=== PATIENT | male | born 1960 | race African-American/Black ===

== ENCOUNTER 2019-09-19 13:01 | Observation (INO) ==
[2019-09-19] MEDS ORDERED: NS 1000 ML 1,000 ML IV ONE (13:18)
[2019-09-19] MEDS ORDERED: ZOFRAN INJ 4 MG VIAL IVP ONE (13:18)
[2019-09-19] MEDS ORDERED: NS 1000 ML 1,000 ML ONE (13:40)
[2019-09-19] MEDS ORDERED: ZOFRAN INJ 4 MG VIAL ONE (13:40)
--- NOTE | 2019-09-19 13:51 | DR.N/VMALE ---
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 Multiple episodes NB/ NB emesis along w/ multiple episodes of diarrhea w/o noted blood or mucous. No abd pain. No f/c,. No CP or sob. Complaints Chief Complaint:: patient stated he called 911 due to him vomiting, nausea, and diarrhea since this morning. said it makes his abd burn Source History Provided: Patient and Family Member Mode of Arrival Mode of Arrival: EMS Timing Onset of Chief Complaint: 09/19/19 Context Onset: Spontaneous Recent: denies Travel and Contact Exposure Possible Ingestion: ETOH History of: Abdominal Operation and Diabetes Associated Signs and Symptoms Symptoms: Diarrhea; denies Abdominal Pain PMH PMH Past Medical History: Yes Past Medical History: Depression, Diabetes and Dyslipidemia Past Medical History Comment: alcoholism Past Surgical History: Yes Surgical History: Abdominal Surgery Family History History of Family Medical Conditions: No Social History Does patient currently use any type of tobacco product: No Have you used tobacco products in the last 12 months: No Type of Tobacco Use: None Does any household member use tobacco: No Alcohol Use: None and DAILY Do you use any recreational Drugs:: No Lives With: Family Lives Where: Home infectious screening In the last 2 months have you had wt loss of >10#?: NO Have you had fever, night sweats or hemotysis?: No Have you traveled outside the country in the last 6 months?: No Isolation: Standard ROS Review of Systems Constitutional: negative Chills and Fever Eyes: No Symptoms Reported ENTM: No Symptoms Reported Respiratoy: No Symptoms Reported Cardiovascular: No Symptoms Reported; negative Chest Pain Gastrointestinal/Abdominal: Diarrhea, Nausea and Vomiting; negative Abdominal Pain Genitourinary: No Symptoms Reported Neurological: No Symptoms Reported Musculoskeletal: No Symptoms Reported Integumentary: No Symptoms Reported Hematologic/Lymphatic: No Symptoms Reported Endocrine: No Symptoms Reported Psychiatric: No Symptoms Reported All Other Systems: Reviewed and Negative PE Vital Signs Vitals: Temperature 97.7 F Pulse Rate 105 Respiratory Rate 16 Blood Pressure 145/88 O2 Sat by Pulse Oximetry 98 General Limitations: No Limitations General Appearance: Alert and In No Apparent Distress Head Head Exam: Normal Inspection Eyes Eye exam: Normal Appearance ENT ENT Exam: Normal Oropharynx, Normal External Ear Exam and Mucous Membranes Dry Neck Neck Exam: Normal Inspection Chest Chest Inspection: Normal Inspection Respiratory Respiratory Exam: Normal Lung Sounds Bilat Respiratory Exam: Bilateral: Clear to Auscultation Cardiovascular Cardiovascular Exam: Regular Rate and Normal Rhythm Abdominal Exam Abdominal Exam: Normal Bowel Sounds, Soft and Other (well healed surgical incision, + HSM ); negative Tenderness, Guarding, Rigidity and Dimnished Bowel Sounds Rectal Rectal Exam: Deferred Exam: Male: Deferred Extremities Extremities Exam: Normal Inspection Back Back Exam: Normal Inspection Neurologic Neurological Exam: Alert and Oriented X3 Psychiatric Psychiatric Exam: Normal Affect and Normal Mood Skin Skin Exam: Warm, Dry, Intact and Normal Color COURSE Treatment Treatment: 58 yo aam w/ prev hx of alcoholism and type 2 dm presented w/ n/v x 24 hrs. No hematemesis. Labs unremarkable with exception of lactic acid greater than 4. Given IVF's and Zofran. BAL undetectable. Unable to ambulate and stumbling in umaña but neurologically intact otherwise on exam. Head CT neg-. Will initiate thiamine. Will obtain thiamine/ b12. Hang a bananas bag. Continue ivf's. Will admit. d/w Dr Oliva whom agrees to admit. Abdominal exam benign. No obvious source of infection. Afebrile. WBC wnl. ROR Labs Reviewed Result Diagrams: 09/19/19 13:40 09/19/19 13:40 Laboratory: WBC 10.0 X10^3/uL (3.6-10.0) 09/19/19 13:40 RBC 5.36 X10^6/uL (4.7-6.0) 09/19/19 13:40 Hgb 17.0 g/dL (13.5-18.0) 09/19/19 13:40 Hct 50.0 % (42.0-54.0) 09/19/19 13:40 MCV 93.2 fL (80.0-100.0) 09/19/19 13:40 MCH 31.8 pg (27.0-34.0) 09/19/19 13:40 MCHC 34.1 g/dL (33.0-35.0) 09/19/19 13:40 RDW 13.7 % (11.6-16.5) 09/19/19 13:40 Plt Count 133 X10^3/uL (150.0-450.0) L 09/19/19 13:40 MPV 10.5 fL (7.4-11.0) 09/19/19 13:40 Neut % (Auto) 76.4 % (42.0-75.0) H 09/19/19 13:40 Lymph % (Auto) 15.6 % (21.0-51.0) L 09/19/19 13:40 [place] % (Auto) 6.8 % (0.0-13.0) 09/19/19 13:40 Eos % (Auto) 0.7 % (0.9-2.9) L 09/19/19 13:40 Baso % (Auto) 0.5 % (0.2-1.0) 09/19/19 13:40 Neut # (Auto) 7.7 x10^3/uL (2.2-4.8) H 09/19/19 13:40 Lymph # (Auto) 1.6 X10^3/uL (1.3-2.9) 09/19/19 13:40 [place] # (Auto) 0.7 x10^3/uL (0.3-0.8) 09/19/19 13:40 Eos # (Auto) 0.1 x10^3/uL (0.0-0.2) 09/19/19 13:40 Baso # (Auto) 0.0 X10^3/uL (0.0-0.1) 09/19/19 13:40 Absolute Nucleated RBC 0.0 /100WBC 09/19/19 13:40 Sodium 140 mmol/L (136-145) 09/19/19 13:40 Corrected Sodium 144 mmol/L (136-145) 09/19/19 13:40 Potassium 4.1 mmol/L (3.5-5.1) 09/19/19 13:40 Chloride 99 mmol/L (98-107) 09/19/19 13:40 Carbon Dioxide 27.6 mmol/L (21-32) 09/19/19 13:40 BUN 21 mg/dL (7-18) H 09/19/19 13:40 Creatinine 1.03 mg/dL (0.70-1.30) 09/19/19 13:40 Est GFR (MDRD) Af Amer > 60 (>60) 09/19/19 13:40 Est GFR (MDRD) Non-Af > 60 (>60) 09/19/19 13:40 Glucose 250 mg/dL (65-99) H 09/19/19 13:40 Lactic Acid 4.2 mmol/L (0.4-2.0) H 09/19/19 14:15 Calcium 9.7 mg/dL (8.5-10.1) 09/19/19 13:40 Total Bilirubin 0.60 mg/dL (0.2-1.0) 09/19/19 13:40 Direct Bilirubin 0.20 mg/dL (0-0.2) 09/19/19 13:40 Indirect Bilirubin 0.40 mg/dL (0.2-0.8) 09/19/19 13:40 AST 21 Units/L (15-37) 09/19/19 13:40 ALT 31 Units/L (12-78) 09/19/19 13:40 Alkaline Phosphatase 97 Units/L (46-116) 09/19/19 13:40 Ammonia < 10 umol/L (11-32) L 09/19/19 14:15 Troponin I < 0.02 ng/mL (0-1.5) 09/19/19 13:40 Total Protein 8.1 g/dL (6.4-8.2) 09/19/19 13:40 Albumin 4.2 g/dL (3.4-5.0) 09/19/19 13:40 Globulin 3.9 g/dL (2.5-4.5) 09/19/19 13:40 Albumin/Globulin Ratio 1.1 Ratio (1.1-2.1) 09/19/19 13:40 Lipase 208 Units/L (73-393) 09/19/19 13:40 Specimen Type Clean catch urine 09/19/19 14:02 Urine Color Pale yellow (YELLOW) 09/19/19 14:02 Urine Appearance Clear (CLEAR) 09/19/19 14:02 Urine pH 5.0 (5.0 - 8.0) 09/19/19 14:02 Ur Specific [place] 1.015 (1.000-1.030) 09/19/19 14:02 Urine Protein 2+ (NEGATIVE) 09/19/19 14:02 Urine Glucose (UA) 4+ (NEGATIVE) 09/19/19 14:02 Urine Ketones 2+ (NEGATIVE) 09/19/19 14:02 Urine Occult Blood Negative (NEGATIVE) 09/19/19 14:02 Urine Nitrite Negative (NEGATIVE) 09/19/19 14:02 Urine Bilirubin Negative (NEGATIVE) 09/19/19 14:02 Urine Urobilinogen Normal (NORMAL) 09/19/19 14:02 Ur Leukocyte Esterase Negative (NEGATIVE) 09/19/19 14:02 Urine RBC None seen /HPF (0-3) 09/19/19 14:02 Urine WBC None seen /HPF (0-5) 09/19/19 14:02 Ur Squamous Epith Cells Rare /HPF (NEGATIVE) 09/19/19 14:02 Urine Bacteria Negative /HPF (NEGATIVE) 09/19/19 14:02 Ur Culture Indicated? No/not indicated 09/19/19 14:02 Urine Opiates Screen Negative (NEG=<300) 09/19/19 14:02 Urine Methadone Screen Negative (NEG=<300) 09/19/19 14:02 Ur Barbiturates Screen Negative (NEG=<200) 09/19/19 14:02 Ur Phencyclidine Scrn Negative (NEG=<25) 09/19/19 14:02 Ur Amphetamines Screen Negative (NEG=<1000) 09/19/19 14:02 U Benzodiazepines Scrn Negative (NEG=<200) 09/19/19 14:02 Urine Cocaine Screen Negative (NEG=<300) 09/19/19 14:02 U Marijuana (THC) Screen Negative (NEG=<50) 09/19/19 14:02 Ethyl Alcohol mg/dL < 3 mg/dL (0-19.9) 09/19/19 13:40 EKG Rate: 106 [place]: Normal Rhythm: ST Block: None Hypertrophy: None ST: Normal Opioid Opioid Risk Tool Total: 0 Total Score Risk Category: Low Risk Copyright: Zackary COLLINS predicting aberrant behaviors Diagnosis Discharge Problem: Alcohol abuse, Acute dehydration, Abnormal gait, Acidosis, lactic
[2019-09-19 14:00] LABS: MEAN CORPUSCULAR HEMOGLOBIN 31.8 pg (27.0-34.0); MEAN CORPUSCULAR VOLUME 93.2 fL (80.0-100.0); RED BLOOD COUNT 5.36 X10^6/uL (4.7-6.0)
[2019-09-19 14:01] LABS: BASOPHILS % (AUTO) 0.5 % (0.2-1.0); EOSINOPHILS # (AUTO) 0.1 x10^3/uL (0.0-0.2); EOSINOPHILS % (AUTO) 0.7 % (0.9-2.9); LYMPHOCYTES # (AUTO) 1.6 X10^3/uL (1.3-2.9); LYMPHOCYTES % (AUTO) 15.6 % (21.0-51.0); MEAN CORPUSCULAR HGB CONC 34.1 g/dL (33.0-35.0); MEAN PLATELET VOLUME 10.5 fL (7.4-11.0); MONOCYTES # (AUTO) 0.7 x10^3/uL (0.3-0.8); MONOCYTES % (AUTO) 6.8 % (0.0-13.0); NEUTROPHILS # (AUTO) 7.7 x10^3/uL (2.2-4.8); NEUTROPHILS % (AUTO) 76.4 % (42.0-75.0); PLATELET COUNT 133 X10^3/uL (150.0-450.0); RED CELL DISTRIBUTION WIDTH 13.7 % (11.6-16.5)
[2019-09-19 14:09] LABS: ALANINE AMINOTRANSFERASE 31 Units/L (12-78); ALBUMIN 4.2 g/dL (3.4-5.0); ALKALINE PHOSPHATASE 97 Units/L (46-116); ASPARTATE AMINO TRANSFERASE 21 Units/L (15-37); BLOOD ALCOHOL < 3 mg/dL (0-19.9); TOTAL PROTEIN 8.1 g/dL (6.4-8.2)
[2019-09-19 14:10] LABS: BILIRUBIN,URINE NEGATIVE (NEGATIVE); BLOOD/HEMOGLOBIN,URINE NEGATIVE (NEGATIVE); GLUCOSE, URINE 4+ (NEGATIVE); KETONES,URINE 2+ (NEGATIVE); LEUKOCYTE ESTERASE ,URINE NEGATIVE (NEGATIVE); NITRITES,URINE NEGATIVE (NEGATIVE); PROTEIN,URINE 2+ (NEGATIVE); UROBILINOGEN,URINE NORMAL (NORMAL)
[2019-09-19 14:17] LABS: BLOOD UREA NITROGEN 21 mg/dL (7-18); CALCIUM 9.7 mg/dL (8.5-10.1); CARBON DIOXIDE 27.6 mmol/L (21-32); CHLORIDE 99 mmol/L (98-107); COR NA(FOR HYPERGLY) 144 mmol/L (136-145); CREATININE 1.03 mg/dL (0.70-1.30); SODIUM 140 mmol/L (136-145); TROPONIN I < 0.02 ng/mL (0-1.5); eGFR NON BLACK RACES > 60 (>60)
[2019-09-19 14:19] LABS: APPEARANCE,URINE CLEAR (CLEAR); BACTERIA,URINE NEGATIVE /HPF (NEGATIVE); COLOR,URINE PALE YELLOW (YELLOW); RBC,URINE NONE SEEN /HPF (0-3); SQUAMOUS EPITHELIAL CELL,UR RARE /HPF (NEGATIVE)
[2019-09-19 14:34] LABS: AMMONIA < 10 umol/L (11-32)
[2019-09-19 14:40] LABS: LACTIC ACID 4.2 mmol/L (0.4-2.0)
[2019-09-19] MEDS ORDERED: ATIVAN TAB 1 MG PO ONE (14:45)
[2019-09-19] MEDS: NS 1000 ML 1,000 ML IV SCH (14:52)
[2019-09-19] MEDS ORDERED: ATIVAN TAB 1 MG ONE (14:55)
[2019-09-19] MEDS ORDERED: NS 500 ML IV 500 ML IV ONE (15:53)
--- NOTE | 2019-09-19 17:41 | CT ---
STUDY: CT HEAD WITHOUT CONTRAST HISTORY: Vomiting, nausea, and diarrhea since this morning.. COMPARISON: None. TECHNIQUE: Multiple axial images of the head were obtained from the skull base to the vertex without administration of IV contrast. Automated exposure control (AEC) was utilized to adjust the MA and/or kV. Findings: The sulci, cisterns and ventricles are age appropriate. There are scattered foci of low attenuation in the periventricular and subcortical white matter of both hemispheres. This is a nonspecific finding which likely represents microangiopathic change in a patient of this age. There is no evidence of acute territorial infarction, hemorrhage, mass, mass effect or midline shift. There are no abnormal extra-axial fluid collections. There is no evidence of acute osseous abnormality or significant soft tissue swelling. IMPRESSION: 1. No evidence of acute intracranial abnormality. 2. Nonspecific white matter change and volume loss as described. 3. If there is strong clinical concern for acute intracranial abnormality, then an MRI examination of the brain could be performed for further evaluation. However, if there are no deficits on neurologic exam, there are no abnormalities identified on this study which require immediate imaging follow-up on an emergent basis. Follow-up MRI could be considered on an outpatient basis as clinically warranted. Reported By:
[2019-09-19] MEDS ORDERED: NS 1000 ML 1,000 ML with MAGNESIUM SULFATE 50% INJ VIAL 1 G, MVI INJ (ADULT) 10 ML IV SCH ×3 (17:42)
[2019-09-19] MEDS ORDERED: MAGNESIUM SULFATE 50% INJ VIAL ONE (17:45)
[2019-09-19] MEDS ORDERED: MVI INJ (ADULT) IV ONE (17:49)
--- NOTE | 2019-09-19 18:26 | RAD ---
Examination: AP chest History: Nausea vomiting diarrhea Findings: Normal heart size with clear lungs and pleural spaces. Impression: Normal AP chest. Reported By:
[2019-09-19 20:09] VITALS: BMI 24.5
[2019-09-19] MEDS: THIAMINE HCL INJ IM SCH (20:13)
[2019-09-19] MEDS: MAALOX or MYLANTA PO PRN (21:57)
[2019-09-20] MEDS: NS 1000 ML 1,000 ML IV SCH ×5 (00:14→19:38)
[2019-09-20] MEDS ORDERED: TYLENOL 325 MG TAB PO ONE (01:31)
[2019-09-20] MEDS: TYLENOL 325 MG TAB PO PRN (01:35)
[2019-09-20 05:17] LABS: BASOPHILS % (AUTO) 0.4 % (0.2-1.0); EOSINOPHILS % (AUTO) 0.5 % (0.9-2.9); HEMATOCRIT 44.1 % (42.0-54.0); HEMOGLOBIN 15.2 g/dL (13.5-18.0); LYMPHOCYTES # (AUTO) 2.2 X10^3/uL (1.3-2.9); LYMPHOCYTES % (AUTO) 27.8 % (21.0-51.0); MEAN CORPUSCULAR HEMOGLOBIN 31.5 pg (27.0-34.0); MEAN CORPUSCULAR HGB CONC 34.3 g/dL (33.0-35.0); MEAN CORPUSCULAR VOLUME 91.8 fL (80.0-100.0); MEAN PLATELET VOLUME 9.4 fL (7.4-11.0); MONOCYTES # (AUTO) 0.9 x10^3/uL (0.3-0.8); MONOCYTES % (AUTO) 11.2 % (0.0-13.0); NEUTROPHILS # (AUTO) 4.7 x10^3/uL (2.2-4.8); NEUTROPHILS % (AUTO) 60.1 % (42.0-75.0); PLATELET COUNT 132 X10^3/uL (150.0-450.0); RED BLOOD COUNT 4.81 X10^6/uL (4.7-6.0); RED CELL DISTRIBUTION WIDTH 13.5 % (11.6-16.5); WHITE BLOOD COUNT 7.9 X10^3/uL (3.6-10.0)
[2019-09-20 05:24] LABS: LACTIC ACID 1.4 mmol/L (0.4-2.0)
[2019-09-20 05:26] LABS: ALANINE AMINOTRANSFERASE 25 Units/L (12-78); ALBUMIN 3.4 g/dL (3.4-5.0); ALKALINE PHOSPHATASE 71 Units/L (46-116); ASPARTATE AMINO TRANSFERASE 16 Units/L (15-37); BLOOD UREA NITROGEN 18 mg/dL (7-18); CALCIUM 8.8 mg/dL (8.5-10.1); CARBON DIOXIDE 25.8 mmol/L (21-32); CHLORIDE 102 mmol/L (98-107); COR NA(FOR HYPERGLY) 139 mmol/L (136-145); CREATININE 0.88 mg/dL (0.70-1.30); SODIUM 137 mmol/L (136-145); TOTAL PROTEIN 6.7 g/dL (6.4-8.2); eGFR NON BLACK RACES > 60 (>60)
[2019-09-20] MEDS: HumuLIN R SC PRN ×3 (05:43→20:44)
[2019-09-20] MEDS: THIAMINE HCL INJ IM SCH (10:37)
[2019-09-20] MEDS ORDERED: GLUCOPHAGE ONE ×2 (14:47→20:06)
[2019-09-20] MEDS: GLUCOTROL XL PO SCH (14:53)
[2019-09-20] MEDS: JANUVIA PO SCH (14:53)
[2019-09-20] MEDS: GLUCOPHAGE PO SCH ×2 (14:54→20:39)
[2019-09-20] MEDS ORDERED: ZOFRAN INJ 4 MG VIAL ONE (15:39)
[2019-09-20] MEDS: ZOFRAN INJ 4 MG VIAL IVP PRN (15:48)
[2019-09-20] MEDS: MAALOX or MYLANTA PO PRN (17:23)
[2019-09-20] MEDS: DAPAGLIFLOZIN 10 MG PO SCH ×2 (18:41→18:42)
[2019-09-20] MEDS: ZOCOR TAB 40 MG PO SCH (20:39)
[2019-09-20] MEDS: SNACK - Diabetic Appropriate PO SCH (20:45)
[2019-09-21] MEDS: NS 1000 ML 1,000 ML IV SCH ×2 (02:05→09:33)
[2019-09-21 05:10] LABS: BASOPHILS % (AUTO) 0.4 % (0.2-1.0); EOSINOPHILS # (AUTO) 0.1 x10^3/uL (0.0-0.2); EOSINOPHILS % (AUTO) 1.2 % (0.9-2.9); HEMATOCRIT 44.7 % (42.0-54.0); HEMOGLOBIN 15.1 g/dL (13.5-18.0); LYMPHOCYTES # (AUTO) 2.2 X10^3/uL (1.3-2.9); LYMPHOCYTES % (AUTO) 29.3 % (21.0-51.0); MEAN CORPUSCULAR HEMOGLOBIN 31.3 pg (27.0-34.0); MEAN CORPUSCULAR HGB CONC 33.9 g/dL (33.0-35.0); MEAN CORPUSCULAR VOLUME 92.6 fL (80.0-100.0); MEAN PLATELET VOLUME 10.2 fL (7.4-11.0); MONOCYTES # (AUTO) 0.8 x10^3/uL (0.3-0.8); MONOCYTES % (AUTO) 10.3 % (0.0-13.0); NEUTROPHILS # (AUTO) 4.3 x10^3/uL (2.2-4.8); NEUTROPHILS % (AUTO) 58.8 % (42.0-75.0); PLATELET COUNT 127 X10^3/uL (150.0-450.0); RED BLOOD COUNT 4.83 X10^6/uL (4.7-6.0); RED CELL DISTRIBUTION WIDTH 13.8 % (11.6-16.5); WHITE BLOOD COUNT 7.3 X10^3/uL (3.6-10.0)
[2019-09-21 05:29] LABS: ALANINE AMINOTRANSFERASE 21 Units/L (12-78); ALBUMIN 3.3 g/dL (3.4-5.0); ALKALINE PHOSPHATASE 75 Units/L (46-116); ASPARTATE AMINO TRANSFERASE 16 Units/L (15-37); BLOOD UREA NITROGEN 17 mg/dL (7-18); CALCIUM 8.6 mg/dL (8.5-10.1); CARBON DIOXIDE 25.3 mmol/L (21-32); CHLORIDE 104 mmol/L (98-107); COR CA(FOR HYPOALB) 9.2 mg/dL (8.5-10.1); COR NA(FOR HYPERGLY) 141 mmol/L (136-145); CREATININE 0.87 mg/dL (0.70-1.30); SODIUM 139 mmol/L (136-145); TOTAL PROTEIN 6.7 g/dL (6.4-8.2); eGFR NON BLACK RACES > 60 (>60)
[2019-09-21] MEDS ORDERED: GLUCOPHAGE ONE ×2 (09:20→20:17)
[2019-09-21] MEDS: TYLENOL 325 MG TAB PO PRN (09:33)
[2019-09-21] MEDS: GLUCOTROL XL PO SCH (09:34)
[2019-09-21] MEDS: GLUCOPHAGE PO SCH ×2 (09:34→20:45)
[2019-09-21] MEDS: JANUVIA PO SCH (09:34)
[2019-09-21] MEDS: DAPAGLIFLOZIN 10 MG PO SCH (09:40)
[2019-09-21] MEDS: THIAMINE HCL INJ IM SCH (09:44)
[2019-09-21] MEDS: LR 1000 ML IV 1,000 ML IV SCH ×2 (10:25→20:30)
--- NOTE | 2019-09-21 17:44 | MRI ---
MRA NECK WITHOUT CONTRAST CLINICAL HISTORY: 58-year-old male with left-sided weakness. COMPARISON: CT head 09/19/2019. TECHNIQUE: 3-D [id number] magnetic resonance angiographic images of the neck vessels were obtained and submitted as maximum intensity projection images in rotating format. FINDINGS: The origins of the common carotid and vertebral arteries are not evaluated on all sequences and limited due to motion artifact on remaining sequences. However, they appear patent. Left dominant vertebral artery. The vertebral arteries are normal in course and caliber to the level of the vertebrobasilar junction. The common carotid, internal and external carotid arteries are normal in course and caliber. The carotid bifurcations are normal in appearance. There is no evidence of dissection or hemodynamically significant stenosis. IMPRESSION: 1. Limitations as above. 2. No high-grade stenosis, complete occlusion, aneurysm, dissection or vascular malformation. Reported By:
--- NOTE | 2019-09-21 17:54 | MRI ---
MRA HEAD WITHOUT CONTRAST CLINICAL HISTORY: 58-year-old male with left-sided weakness. COMPARISONS: CT head 09/19/2019. TECHNIQUE: 3-D time of flight magnetic resonance angiographic images of the [place] were obtained and presented as maximum intensity projection images in rotating format. FINDINGS: Left dominant vertebral artery with left PICA present. Right common AICA/PICA trunk. Normal left AICA. The basilar artery is normal in appearance and gives off normal bilateral superior cerebellar and posterior cerebral arteries. Luminal narrowing of flow related enhancement within the C6/C7 portions of the ICA bilaterally, 50% on the left and 50-69% on the right with short-segment complete loss of flow related enhancement within the right carotid terminus at the origin of the MCA. All in keeping with noted significant atherosclerotic calcification on CT head performed 09/19/2019. Near complete loss of flow related enhancement within the right A1 segment with retrograde flow related enhancement within the distal aspect of the right A1 segment. Internal carotid arteries are otherwise normal in their course. Posterior communicating arteries are not visualized. The middle and anterior cerebral arteries are normal in course and caliber. There is a small caliber anterior communicating artery. IMPRESSION: 1. 50-69% stenosis/loss of flow related enhancement within the right ICA C6/C7 segments as described. 2. Short-segment complete loss of flow related enhancement within the right carotid terminus at the origin of the right MCA. 3. Approximate 50% stenosis/loss of flow related enhancement within the left ICA C6/C7 segments as described. 4. Near-complete loss of flow related enhancement within the right A1 segment with retrograde filling of the distal aspect. Given constellation of findings, CTA head is recommended for complete evaluation. Reported By:
--- NOTE | 2019-09-21 18:11 | MRI ---
MRI BRAIN WITHOUT CONTRAST CLINICAL HISTORY: 58-year-old male with left-sided weakness. COMPARISON: CT head 09/19/2019. TECHNIQUE: Multiplanar, multisequence MR images of the brain were obtained without contrast. FINDINGS: Multiple foci of diffusion restriction involving the right lentiform nucleus, caudate head, right frontal and parietal lobes with multiple punctate foci lining the geller radiata along the lateral ventricle. Large confluent focus of diffusion restriction along the posterior aspect of the right geller radiata extending into the centrum semiovale with confluent focus within the right superior occipital lobe. No evidence of hemorrhagic transformation with all lesions demonstrating signal loss on ADC map with concomitant T2 FLAIR hyperintensity. Above findings are superimposed upon multifocal punctate T2 FLAIR signal hyperintensities within the subcortical, juxtacortical, periventricular and supraventricular white matter that are nonspecific in appearance but most likely to represent microvascular white matter ischemic changes. The craniocervical junction is normal. Pituitary and optic nerve complex are normal. Normal signal characteristics and morphology are demonstrated within the corpus callosum, brainstem and cerebellum. No abnormal susceptibility on gradient imaging. Age advanced cortical volume loss is present, with commensurate sulcal and ventricular prominence. The basilar cisterns are normal. The orbits and globes are within normal limits. Scattered mucosal thickening ethmoid labyrinth and maxillary sinuses with remaining paranasal sinuses, mastoid air cells and tympanic cavities clear. 8 mm cystic structure right paramedian maxilla. IMPRESSION: 1. Acute ischemic insult without hemorrhagic transformation predominantly involving the right PAYTON and lenticulostriate distribution, with additional foci of ischemic insult involving the anterior right frontal lobe, right parietal lobe and occipital lobe. See detailed description above. Findings most consistent with embolic disease from noted atherosclerosis. 2. Moderate, chronic microvascular white matter ischemic disease with associated volume loss. 3. 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 Residual cyst and radicular cyst within the differential. Reported By:
[2019-09-21] MEDS: ZOCOR TAB 40 MG PO SCH (20:44)
[2019-09-21] MEDS: SNACK - Diabetic Appropriate PO SCH (20:44)
[2019-09-21] MEDS: HumuLIN R SC PRN (21:41)
[2019-09-21] MEDS: MAALOX or MYLANTA PO PRN (22:00)
[2019-09-21] MEDS: ZOFRAN INJ 4 MG VIAL IVP PRN (22:23)
[2019-09-22] MEDS: LR 1000 ML IV 1,000 ML IV SCH ×3 (03:00→19:00)
[2019-09-22] MEDS ORDERED: GLUCOPHAGE ONE ×2 (08:22→19:50)
[2019-09-22] MEDS: MAALOX or MYLANTA PO PRN (08:49)
[2019-09-22] MEDS: THIAMINE HCL INJ IM SCH (08:50)
[2019-09-22] MEDS: GLUCOPHAGE PO SCH ×2 (08:51→21:00)
[2019-09-22] MEDS: GLUCOTROL XL PO SCH (08:51)
[2019-09-22] MEDS: JANUVIA PO SCH (08:51)
[2019-09-22] MEDS: DAPAGLIFLOZIN 10 MG PO SCH (08:52)
[2019-09-22] MEDS: COZAAR PO SCH (10:24)
[2019-09-22] MEDS: ZOCOR TAB 40 MG PO SCH (20:59)
[2019-09-22] MEDS: SNACK - Diabetic Appropriate PO SCH (21:00)
[2019-09-22] MEDS: HumuLIN R SC PRN (21:20)
[2019-09-23] MEDS: LR 1000 ML IV 1,000 ML IV SCH ×3 (05:24→17:00)
[2019-09-23] MEDS ORDERED: GLUCOPHAGE ONE ×2 (09:04→19:37)
[2019-09-23] MEDS: JANUVIA PO SCH (09:38)
[2019-09-23] MEDS: GLUCOPHAGE PO SCH ×2 (09:38→20:44)
[2019-09-23] MEDS: COZAAR PO SCH (09:38)
[2019-09-23] MEDS: DAPAGLIFLOZIN 10 MG PO SCH (09:39)
[2019-09-23] MEDS: THIAMINE HCL INJ IM SCH (09:39)
[2019-09-23] MEDS: ACTOS PO SCH (09:42)
[2019-09-23] MEDS: HumuLIN R SC PRN ×2 (12:23→20:43)
[2019-09-23] MEDS: SNACK - Diabetic Appropriate PO SCH (20:42)
[2019-09-23] MEDS: ZOCOR TAB 40 MG PO SCH (20:43)
[2019-09-24] MEDS: LR 1000 ML IV 1,000 ML IV SCH ×4 (01:20→20:27)
[2019-09-24] MEDS ORDERED: GLUCOPHAGE ONE ×2 (08:01→19:43)
[2019-09-24] MEDS: COZAAR PO SCH (08:26)
[2019-09-24] MEDS: JANUVIA PO SCH (08:26)
[2019-09-24] MEDS: ACTOS PO SCH (08:26)
[2019-09-24] MEDS: GLUCOPHAGE PO SCH ×2 (08:26→20:29)
[2019-09-24] MEDS: DAPAGLIFLOZIN 10 MG PO SCH (08:27)
[2019-09-24] MEDS: TYLENOL 325 MG TAB PO PRN (11:22)
[2019-09-24] MEDS: THIAMINE HCL INJ IM SCH (15:38)
[2019-09-24] MEDS: MAALOX or MYLANTA PO PRN (16:36)
[2019-09-24] MEDS: ZOCOR TAB 40 MG PO SCH (20:29)
[2019-09-24] MEDS: SNACK - Diabetic Appropriate PO SCH (20:29)
[2019-09-25] MEDS: LR 1000 ML IV 1,000 ML IV SCH ×3 (01:58→20:13)
[2019-09-25] MEDS ORDERED: GLUCOPHAGE ONE ×2 (09:09→19:40)
[2019-09-25] MEDS: ACTOS PO SCH (09:15)
[2019-09-25] MEDS: JANUVIA PO SCH (09:16)
[2019-09-25] MEDS: COZAAR PO SCH (09:16)
[2019-09-25] MEDS: GLUCOPHAGE PO SCH ×2 (09:17→20:14)
[2019-09-25] MEDS: THIAMINE HCL INJ IM SCH (09:19)
[2019-09-25] MEDS: DAPAGLIFLOZIN 10 MG PO SCH (09:22)
[2019-09-25] MEDS: ECOTRIN TAB 325 MG PO SCH (11:00)
[2019-09-25] MEDS: SNACK - Diabetic Appropriate PO SCH (20:14)
[2019-09-25] MEDS: ZOCOR TAB 40 MG PO SCH (20:14)
[2019-09-26] MEDS: LR 1000 ML IV 1,000 ML IV SCH ×5 (05:02→22:42)
[2019-09-26] MEDS ORDERED: GLUCOPHAGE ONE ×2 (09:29→19:57)
[2019-09-26] MEDS: GLUCOPHAGE PO SCH ×2 (10:04→20:15)
[2019-09-26] MEDS: ACTOS PO SCH (10:04)
[2019-09-26] MEDS: ECOTRIN TAB 325 MG PO SCH (10:04)
[2019-09-26] MEDS: COZAAR PO SCH (10:05)
[2019-09-26] MEDS: THIAMINE HCL INJ IM SCH (10:05)
[2019-09-26] MEDS: JANUVIA PO SCH (10:06)
[2019-09-26] MEDS: DAPAGLIFLOZIN 10 MG PO SCH (10:07)
--- NOTE | 2019-09-26 12:38 | PCM.PROG ---
Progress Note Progress Note for Day of Date of Exam: 09/26/19 Subjective Subjective: Pt is a 58 y/o m admitted for CVA. MRI: Acute ischemic insult without hemorrhagic transformation predominantly involving the right PAYTON and lenticulostriate distribution, with additional foci of ischemic insult involving the anterior right frontal lobe, right parietal lobe and occipital lobe. Pt w/ no acute concerns or events overnight. Scheduled for transfer tomorrow to [facility]. Past Medical Family Social History Past Med/Fam/Surg Hx: No changes since H&P Allergies: Allergies No Known Drug Allergies Allergy (Verified 09/19/19 17:56) Review of Systems ROS: No change since H&P Vital Signs and I&O's Vital Signs: Temperature 98.1 F Pulse Rate [Apical] 91 Pulse Rate 105 Respiratory Rate 18 Blood Pressure [Left Arm] 131/77 Blood Pressure [Right Arm] 133/65 Blood Pressure 155/72 O2 Sat by Pulse Oximetry 98 Intake and Output: Intake & Output 09/23/19 09/24/19 09/25/19 09/26/19 23:59 23:59 23:59 23:59 Intake Total 4180 / 4180 3110 / 3110 2480 / 2480 600 / 600 Output Total 1325 / 1325 300 / 300 Balance 4180 / 4180 3110 / 3110 1155 / 1155 300 / 300 Physical Exam Oriented: Normal Eyes: Normal Ear: Normal Nose: Normal Respiratory: Normal Cardiovascular: Normal : Normal Tenderness: Normal Skin: Normal Musculoskeletal: Left (LUE weakness ) Psychiatric: Normal Mood Description: Calm Speech Pattern: Appropriate Laboratory and Diagnostics Result Diagrams: 09/21/19 04:04 09/21/19 04:04 Labs: Laboratory WBC 7.3 X10^3/uL (3.6-10.0) 09/21/19 04:04 RBC 4.83 X10^6/uL (4.7-6.0) 09/21/19 04:04 Hgb 15.1 g/dL (13.5-18.0) 09/21/19 04:04 Hct 44.7 % (42.0-54.0) 09/21/19 04:04 MCV 92.6 fL (80.0-100.0) 09/21/19 04:04 MCH 31.3 pg (27.0-34.0) 09/21/19 04:04 MCHC 33.9 g/dL (33.0-35.0) 09/21/19 04:04 RDW 13.8 % (11.6-16.5) 09/21/19 04:04 Plt Count 127 X10^3/uL (150.0-450.0) L 09/21/19 04:04 MPV 10.2 fL (7.4-11.0) 09/21/19 04:04 Neut % (Auto) 58.8 % (42.0-75.0) 09/21/19 04:04 Lymph % (Auto) 29.3 % (21.0-51.0) 09/21/19 04:04 [place] % (Auto) 10.3 % (0.0-13.0) 09/21/19 04:04 Eos % (Auto) 1.2 % (0.9-2.9) 09/21/19 04:04 Baso % (Auto) 0.4 % (0.2-1.0) 09/21/19 04:04 Neut # (Auto) 4.3 x10^3/uL (2.2-4.8) 09/21/19 04:04 Lymph # (Auto) 2.2 X10^3/uL (1.3-2.9) 09/21/19 04:04 [place] # (Auto) 0.8 x10^3/uL (0.3-0.8) 09/21/19 04:04 Eos # (Auto) 0.1 x10^3/uL (0.0-0.2) 09/21/19 04:04 Baso # (Auto) 0.0 X10^3/uL (0.0-0.1) 09/21/19 04:04 Absolute Nucleated RBC 0.0 /100WBC 09/21/19 04:04 Sodium 139 mmol/L (136-145) 09/21/19 04:04 Corrected Sodium 141 mmol/L (136-145) 09/21/19 04:04 Potassium 3.9 mmol/L (3.5-5.1) 09/21/19 04:04 Chloride 104 mmol/L (98-107) 09/21/19 04:04 Carbon Dioxide 25.3 mmol/L (21-32) 09/21/19 04:04 BUN 17 mg/dL (7-18) 09/21/19 04:04 Creatinine 0.87 mg/dL (0.70-1.30) 09/21/19 04:04 Est GFR (MDRD) Af Amer > 60 (>60) 09/21/19 04:04 Est GFR (MDRD) Non-Af > 60 (>60) 09/21/19 04:04 Glucose 180 mg/dL (65-99) H 09/21/19 04:04 POC Glucose (mg/dL) 226 mg/dL (65-99) H 09/19/19 13:12 Lactic Acid 1.4 mmol/L (0.4-2.0) 09/20/19 04:55 Calcium 8.6 mg/dL (8.5-10.1) 09/21/19 04:04 Corrected Calcium 9.2 mg/dL (8.5-10.1) 09/21/19 04:04 Total Bilirubin 0.30 mg/dL (0.2-1.0) 09/21/19 04:04 Direct Bilirubin 0.20 mg/dL (0-0.2) 09/19/19 13:40 Indirect Bilirubin 0.40 mg/dL (0.2-0.8) 09/19/19 13:40 AST 16 Units/L (15-37) 09/21/19 04:04 ALT 21 Units/L (12-78) 09/21/19 04:04 Alkaline Phosphatase 75 Units/L (46-116) 09/21/19 04:04 Ammonia < 10 umol/L (11-32) L 09/19/19 14:15 Troponin I < 0.02 ng/mL (0-1.5) 09/19/19 13:40 Total Protein 6.7 g/dL (6.4-8.2) 09/21/19 04:04 Albumin 3.3 g/dL (3.4-5.0) L 09/21/19 04:04 Globulin 3.4 g/dL (2.5-4.5) 09/21/19 04:04 Albumin/Globulin Ratio 1.0 Ratio (1.1-2.1) L 09/21/19 04:04 Lipase 208 Units/L (73-393) 09/19/19 13:40 Thiamine 135 nmol/L (70-180) 09/19/19 13:40 Vitamin B12 421 pg/mL (193-986) 09/19/19 13:40 Specimen Type Clean catch urine 09/19/19 14:02 Urine Color Pale yellow (YELLOW) 09/19/19 14:02 Urine Appearance Clear (CLEAR) 09/19/19 14:02 Urine pH 5.0 (5.0 - 8.0) 09/19/19 14:02 Ur Specific [place] 1.015 (1.000-1.030) 09/19/19 14:02 Urine Protein 2+ (NEGATIVE) 09/19/19 14:02 Urine Glucose (UA) 4+ (NEGATIVE) 09/19/19 14:02 Urine Ketones 2+ (NEGATIVE) 09/19/19 14:02 Urine Occult Blood Negative (NEGATIVE) 09/19/19 14:02 Urine Nitrite Negative (NEGATIVE) 09/19/19 14:02 Urine Bilirubin Negative (NEGATIVE) 09/19/19 14:02 Urine Urobilinogen Normal (NORMAL) 09/19/19 14:02 Ur Leukocyte Esterase Negative (NEGATIVE) 09/19/19 14:02 Urine RBC None seen /HPF (0-3) 09/19/19 14:02 Urine WBC None seen /HPF (0-5) 09/19/19 14:02 Ur Squamous Epith Cells Rare /HPF (NEGATIVE) 09/19/19 14:02 Urine Bacteria Negative /HPF (NEGATIVE) 09/19/19 14:02 Ur Culture Indicated? No/not indicated 09/19/19 14:02 Urine Opiates Screen Negative (NEG=<300) 09/19/19 14:02 Urine Methadone Screen Negative (NEG=<300) 09/19/19 14:02 Ur Barbiturates Screen Negative (NEG=<200) 09/19/19 14:02 Ur Phencyclidine Scrn Negative (NEG=<25) 09/19/19 14:02 Ur Amphetamines Screen Negative (NEG=<1000) 09/19/19 14:02 U Benzodiazepines Scrn Negative (NEG=<200) 09/19/19 14:02 Urine Cocaine Screen Negative (NEG=<300) 09/19/19 14:02 U Marijuana (THC) Screen Negative (NEG=<50) 09/19/19 14:02 Ethyl Alcohol mg/dL < 3 mg/dL (0-19.9) 09/19/19 13:40 ST: Inf Plan (1) Acute CVA (cerebrovascular accident): Status: Acute Plan: PT/OT Pt to be transferred tomorrow to [place], [place]. (2) Hypertension: Status: Acute Plan: continue home meds (3) Diabetes mellitus: Status: Acute Plan: continue home meds
[2019-09-26] MEDS: HumuLIN R SC PRN (16:38)
[2019-09-26] MEDS: ZOCOR TAB 40 MG PO SCH (20:15)
[2019-09-26] MEDS: SNACK - Diabetic Appropriate PO SCH (20:16)
[2019-09-27] MEDS: LR 1000 ML IV 1,000 ML IV SCH (04:31)
[2019-09-27] MEDS ORDERED: GLUCOPHAGE ONE (08:20)
--- NOTE | 2019-09-27 08:31 | W.DIS.FURT ---
Summary of Discharge Discharge Summary of Date Date of Exam: 09/27/19 Admission Date Date of Admission: 09/19/19 Admission Diagnosis Patient Problems (Updated 09/26/19 @ 12:47 by Lawrence Ferguson) Diabetes mellitus (Acute) E11.9 Hypertension (Acute) I10 Acute CVA (cerebrovascular accident) (Acute) I63.9 Alcohol abuse (Acute) F10.10 Acute dehydration (Acute) E86.0 Abnormal gait (Acute) R26.9 Acidosis, lactic (Acute) E87.2 Hospital Course: Pt w/ pmhx HTN, DMT2, Alcohol abuse, admitted after having left sided weakness and falls. Inpatient workup including MRI showed multiple areas of stroke w/ impression: Acute ischemic insult without hemorrhagic transformation predominantly involving the right PAYTON and lenticulostriate distribution, with additional foci of ischemic insult involving the anterior right frontal lobe, right parietal lobe and occipital lobe. Pt was medically managed in hospital and worked with PT/OT. On day of discharge he is medically stable, still having some left sided weakness. He will be discharged to [facility] facility to undergo further more intensive physical therapy. Vital Signs: Vital Signs (72 hours) 09/24/19 11:22 09/24/19 12:00 09/24/19 12:22 Temperature 97.9 F Pulse Rate [Apical] 101 H Respiratory Rate 18 20 18 Blood Pressure [Left Arm] Blood Pressure [Right Arm] 133/65 O2 Sat by Pulse Oximetry 99 09/24/19 16:00 09/24/19 20:00 09/25/19 00:00 Temperature 98.6 F 98.6 F 98.7 F Pulse Rate [Apical] 97 H 93 H 93 H Respiratory Rate 20 18 16 Blood Pressure [Left Arm] 136/70 123/57 130/75 Blood Pressure [Right Arm] O2 Sat by Pulse Oximetry 96 99 96 09/25/19 04:00 09/25/19 08:00 09/25/19 12:00 Temperature 98.6 F 98.4 F 99.2 F Pulse Rate [Apical] 88 84 86 Respiratory Rate 16 18 18 Blood Pressure [Left Arm] 115/56 121/75 137/72 Blood Pressure [Right Arm] O2 Sat by Pulse Oximetry 96 97 97 09/25/19 16:00 09/25/19 20:00 09/26/19 00:00 Temperature 99.7 F H 99.1 F 98.2 F Pulse Rate [Apical] 104 H 97 H 93 H Respiratory Rate 18 16 16 Blood Pressure [Left Arm] 122/65 128/60 121/64 Blood Pressure [Right Arm] O2 Sat by Pulse Oximetry 97 97 97 09/26/19 04:00 09/26/19 08:00 09/26/19 12:00 Temperature 98.3 F 98.1 F 98.4 F Pulse Rate [Apical] 81 91 H 95 H Respiratory Rate 18 18 17 Blood Pressure [Left Arm] 135/67 131/77 Blood Pressure [Right Arm] 126/73 O2 Sat by Pulse Oximetry 97 98 98 09/26/19 16:00 09/26/19 20:00 09/27/19 00:00 Temperature 98.4 F 98.9 F 98.7 F Pulse Rate [Apical] 106 H 113 H 97 H Respiratory Rate 18 20 18 Blood Pressure [Left Arm] Blood Pressure [Right Arm] 118/62 126/75 122/73 O2 Sat by Pulse Oximetry 97 98 97 09/27/19 04:00 Temperature 98.0 F Pulse Rate [Apical] 92 H Respiratory Rate 18 Blood Pressure [Left Arm] Blood Pressure [Right Arm] 134/73 O2 Sat by Pulse Oximetry 98 Labs: Laboratory Last Values WBC 7.3 X10^3/uL (3.6-10.0) 09/21/19 04:04 RBC 4.83 X10^6/uL (4.7-6.0) 09/21/19 04:04 Hgb 15.1 g/dL (13.5-18.0) 09/21/19 04:04 Hct 44.7 % (42.0-54.0) 09/21/19 04:04 MCV 92.6 fL (80.0-100.0) 09/21/19 04:04 MCH 31.3 pg (27.0-34.0) 09/21/19 04:04 MCHC 33.9 g/dL (33.0-35.0) 09/21/19 04:04 RDW 13.8 % (11.6-16.5) 09/21/19 04:04 Plt Count 127 X10^3/uL (150.0-450.0) L 09/21/19 04:04 MPV 10.2 fL (7.4-11.0) 09/21/19 04:04 Neut % (Auto) 58.8 % (42.0-75.0) 09/21/19 04:04 Lymph % (Auto) 29.3 % (21.0-51.0) 09/21/19 04:04 Davie % (Auto) 10.3 % (0.0-13.0) 09/21/19 04:04 Eos % (Auto) 1.2 % (0.9-2.9) 09/21/19 04:04 Baso % (Auto) 0.4 % (0.2-1.0) 09/21/19 04:04 Neut # (Auto) 4.3 x10^3/uL (2.2-4.8) 09/21/19 04:04 Lymph # (Auto) 2.2 X10^3/uL (1.3-2.9) 09/21/19 04:04 Davie # (Auto) 0.8 x10^3/uL (0.3-0.8) 09/21/19 04:04 Eos # (Auto) 0.1 x10^3/uL (0.0-0.2) 09/21/19 04:04 Baso # (Auto) 0.0 X10^3/uL (0.0-0.1) 09/21/19 04:04 Absolute Nucleated RBC 0.0 /100WBC 09/21/19 04:04 Sodium 139 mmol/L (136-145) 09/21/19 04:04 Corrected Sodium 141 mmol/L (136-145) 09/21/19 04:04 Potassium 3.9 mmol/L (3.5-5.1) 09/21/19 04:04 Chloride 104 mmol/L (98-107) 09/21/19 04:04 Carbon Dioxide 25.3 mmol/L (21-32) 09/21/19 04:04 BUN 17 mg/dL (7-18) 09/21/19 04:04 Creatinine 0.87 mg/dL (0.70-1.30) 09/21/19 04:04 Est GFR (MDRD) Af Amer > 60 (>60) 09/21/19 04:04 Est GFR (MDRD) Non-Af > 60 (>60) 09/21/19 04:04 Glucose 180 mg/dL (65-99) H 09/21/19 04:04 POC Glucose (mg/dL) 226 mg/dL (65-99) H 09/19/19 13:12 Lactic Acid 1.4 mmol/L (0.4-2.0) 09/20/19 04:55 Calcium 8.6 mg/dL (8.5-10.1) 09/21/19 04:04 Corrected Calcium 9.2 mg/dL (8.5-10.1) 09/21/19 04:04 Total Bilirubin 0.30 mg/dL (0.2-1.0) 09/21/19 04:04 Direct Bilirubin 0.20 mg/dL (0-0.2) 09/19/19 13:40 Indirect Bilirubin 0.40 mg/dL (0.2-0.8) 09/19/19 13:40 AST 16 Units/L (15-37) 09/21/19 04:04 ALT 21 Units/L (12-78) 09/21/19 04:04 Alkaline Phosphatase 75 Units/L (46-116) 09/21/19 04:04 Ammonia < 10 umol/L (11-32) L 09/19/19 14:15 Troponin I < 0.02 ng/mL (0-1.5) 09/19/19 13:40 Total Protein 6.7 g/dL (6.4-8.2) 09/21/19 04:04 Albumin 3.3 g/dL (3.4-5.0) L 09/21/19 04:04 Globulin 3.4 g/dL (2.5-4.5) 09/21/19 04:04 Albumin/Globulin Ratio 1.0 Ratio (1.1-2.1) L 09/21/19 04:04 Lipase 208 Units/L (73-393) 09/19/19 13:40 Thiamine 135 nmol/L (70-180) 09/19/19 13:40 Vitamin B12 421 pg/mL (193-986) 09/19/19 13:40 Specimen Type Clean catch urine 09/19/19 14:02 Urine Color Pale yellow (YELLOW) 09/19/19 14:02 Urine Appearance Clear (CLEAR) 09/19/19 14:02 Urine pH 5.0 (5.0 - 8.0) 09/19/19 14:02 Ur Specific Chancellor 1.015 (1.000-1.030) 09/19/19 14:02 Urine Protein 2+ (NEGATIVE) 09/19/19 14:02 Urine Glucose (UA) 4+ (NEGATIVE) 09/19/19 14:02 Urine Ketones 2+ (NEGATIVE) 09/19/19 14:02 Urine Occult Blood Negative (NEGATIVE) 09/19/19 14:02 Urine Nitrite Negative (NEGATIVE) 09/19/19 14:02 Urine Bilirubin Negative (NEGATIVE) 09/19/19 14:02 Urine Urobilinogen Normal (NORMAL) 09/19/19 14:02 Ur Leukocyte Esterase Negative (NEGATIVE) 09/19/19 14:02 Urine RBC None seen /HPF (0-3) 09/19/19 14:02 Urine WBC None seen /HPF (0-5) 09/19/19 14:02 Ur Squamous Epith Cells Rare /HPF (NEGATIVE) 09/19/19 14:02 Urine Bacteria Negative /HPF (NEGATIVE) 09/19/19 14:02 Ur Culture Indicated? No/not indicated 09/19/19 14:02 Urine Opiates Screen Negative (NEG=<300) 09/19/19 14:02 Urine Methadone Screen Negative (NEG=<300) 09/19/19 14:02 Ur Barbiturates Screen Negative (NEG=<200) 09/19/19 14:02 Ur Phencyclidine Scrn Negative (NEG=<25) 09/19/19 14:02 Ur Amphetamines Screen Negative (NEG=<1000) 09/19/19 14:02 U Benzodiazepines Scrn Negative (NEG=<200) 09/19/19 14:02 Urine Cocaine Screen Negative (NEG=<300) 09/19/19 14:02 U Marijuana (THC) Screen Negative (NEG=<50) 09/19/19 14:02 Ethyl Alcohol mg/dL < 3 mg/dL (0-19.9) 09/19/19 13:40 Reason For Visit: DEHYDRATION,ALCOHOLISM,LACTIC ACIDOSIS, Discharge Date Discharge Date: 09/27/19 Discharge Diagnosis All Active Problems (Updated 09/26/19 @ 12:47 by Lawrence Ferguson) Diabetes mellitus (Acute) Hypertension (Acute) Acute CVA (cerebrovascular accident) (Acute) Alcohol abuse (Acute) Acute dehydration (Acute) Abnormal gait (Acute) Acidosis, lactic (Acute) Plan of Treatment: Continue with present treatment and follow up plan. Pt is to keep follow up appointment as instructed and take medications as ordered. Discharge Medications Discharge Medications: No Known Drug Allergies Allergy (Verified 09/19/19 17:56) CONTINUE taking the following medications dapagliflozin [Farxiga] 10 mg PO DAILY 09/20/19 [History] Pioglitazone 40 mg daily metformin 1,000 mg PO BID 09/20/19 [History] simvastatin 40 mg PO HS 09/20/19 [History] sitagliptin [Januvia] 100 mg PO DAILY 09/20/19 [History] Losartan 50mg daily Discharge Disposition Discharge Disposition: Transfer from inpatient facility to adult inpatient rehab.
[2019-09-27] MEDS: ACTOS PO SCH (09:26)
[2019-09-27] MEDS: JANUVIA PO SCH (09:27)
[2019-09-27] MEDS: COZAAR PO SCH (09:27)
[2019-09-27] MEDS: GLUCOPHAGE PO SCH (09:27)
[2019-09-27] MEDS: ECOTRIN TAB 325 MG PO SCH (09:28)
[2019-09-27] MEDS: THIAMINE HCL INJ IM SCH (09:29)
[2019-09-27] MEDS: DAPAGLIFLOZIN 10 MG PO SCH (09:29)
[2019-09-27] MEDS ORDERED: MAALOX or MYLANTA PO PRN (10:48)
[2019-09-27] MEDS: MAALOX or MYLANTA PO PRN (11:23)
[2019-09-27 12:58] VITALS: BP 122/64
== END 2019-09-27 12:45 ==
LOC: ER 13:01 → MED/SURG 13:01
PROVIDERS: ADMIT Obstetrics & Gynecology Obstetrics; ATTEND Obstetrics & Gynecology Obstetrics
CPT/HCPCS: 36415; 70450; 70544; 70547; 70551; 71010; 71045; 80048; 80053; 80076; 80307; 80320; 81001; 82140; 82607; 83605; 83690; 84425; 84484; 85025; 93005; 96360; 96361; 96365; 96367; 96372; 96374; 97110; 97112; 97116; 97163; 97166; 97530; 97535; 99284; A4216; A4222; G0378; G0434; G6040; J1815; J2405; J3411; J3475; J3490; J7030; J7120